=== PATIENT | male | born 1945 | race Hispanic/Latino ===

== ENCOUNTER 2023-02-27 22:14 | Emergency (ER) | payer OTHER ==
[2023-02-28 00:14] LABS: #Basophils 0.1 10x3/uL (0.0-0.2); #Eosinphils 0.1 10x3/uL (0.0-0.5); #Monocytes 0.5 10x3/uL (0.0-1.1); #Neutrophils 3.1 10x3/uL (1.5-8.4); %Basophils 0.8 % (0.0-2.0); %Lymphocytes 36.7 % (18.0-47.0); %Monocytes 8.9 % (0.0-10.0); %Neutrophils 51.4 % (40.0-75.0); Hemoglobin 12.8 g/dL (13.5-17.5); Mean Corpuscular HGB CONC 33.1 g/dL (32.0-36.0); Mean Corpuscular Hemoglobin 28.3 pg (27.0-33.0); Mean Corpuscular Volume 85.6 fl (81.2-95.1); Mean Platelet Volume 12.6 fl (7.4-10.4); Platelet Count 192 10x3/uL (150-450); RBC Distribution Width 15.8 % (11.5-14.5); Red Blood Cell (RBC) Count 4.52 10x6/uL (4.32-5.72)
[2023-02-28 00:31] LABS: ALT (SGPT) 8 U/L (8-55); AST (SGOT) 14 U/L (5-34); Albumin 4.2 g/dL (3.4-4.8); Alkaline Phosphatase 104 U/L (40-110); Anion Gap 13 mmol/L (10-20); BUN (Urea Nitrogen) 26 mg/dL (8.4-25.7); Bilirubin, Total 0.3 mg/dL (0.2-1.2); Calc. Creatinine Clearance 0 mL/min (70-130); Calcium 9.2 mg/dL (7.8-10.44); Carbon Dioxide 24 mmol/L (23-31); Chloride 105 mmol/L (98-107); Estimated GFR 48; Globulin 3.2 g/dL (2.4-3.5); Glucose 96 mg/dL (83-110); Potassium 4.2 mmol/L (3.5-5.1); Protein, Total 7.4 g/dL (5.8-8.1); Sodium 138 mmol/L (136-145)
[2023-02-28] MEDS ORDERED: Ketorolac Tromethamine 30 MG/ML VIAL ONE (01:24)
[2023-02-28] MEDS ORDERED: Acetaminophen 500 MG TAB ONE (01:24)
[2023-02-28] MEDS ORDERED: Iopamidol 370 76% 100 ML VIAL ONE (12:15)
== END 2023-02-28 07:24 | disposition short-term general hospital (02) ==
LOC: CSHERS 22:14
DX: I73.9 Peripheral vascular disease, unspecified (principal); I82.432 Acute embolism and thrombosis of left popliteal vein; I10 Essential (primary) hypertension; F17.210 Nicotine dependence, cigarettes, uncomplicated; Z79.899 Other long term (current) drug therapy
CPT/HCPCS: 75635; 80053; 85025; 85379; 93923; 96372; J1885; Q9967

== ENCOUNTER 2024-02-10 14:14 | Inpatient (IN) | payer OTHER ==
[~2024-02-10 14:14] MED LIST: Iopamidol 370 76% 100 ML VIAL ONE
[2024-02-10] MEDS ORDERED: Nitroglycerin 2% Ointment 1 INCH/1 GM Packet ONE (15:33)
[2024-02-10] MEDS ORDERED: Aspirin Chewable 81 MG TAB ONE (15:34)
[2024-02-10 16:01] LABS: #Basophils 0.1 10x3/uL (0.0-0.2); #Eosinphils 0.1 10x3/uL (0.0-0.5); #Monocytes 0.4 10x3/uL (0.0-1.1); #Neutrophils 2.9 10x3/uL (1.5-8.4); %Eosinophils 1.8 % (0.0-6.0); %Lymphocytes 32.3 % (18.0-47.0); %Monocytes 8.1 % (0.0-10.0); %Neutrophils 56.8 % (40.0-75.0); Hematocrit 37.7 % (38.8-50.0); Hemoglobin 12.5 g/dL (13.5-17.5); Mean Corpuscular HGB CONC 33.2 g/dL (32.0-36.0); Mean Corpuscular Volume 84.3 fl (81.2-95.1); Mean Platelet Volume 11.6 fl (7.4-10.4); Platelet Count 205 10x3/uL (150-450); Red Blood Cell (RBC) Count 4.47 10x6/uL (4.32-5.72); White Blood Cell (WBC) Count 5.1 10x3/uL (3.5-10.5)
[2024-02-10 16:18] LABS: ALT (SGPT) 9 U/L (8-55); AST (SGOT) 11 U/L (5-34); Alkaline Phosphatase 109 U/L (40-110); Anion Gap 13 mmol/L (10-20); BUN (Urea Nitrogen) 21 mg/dL (8.4-25.7); Bilirubin, Total 0.4 mg/dL (0.2-1.2); Calc. Creatinine Clearance 0 mL/min (70-130); Calcium 8.7 mg/dL (7.8-10.44); Carbon Dioxide 24 mmol/L (23-31); Chloride 107 mmol/L (98-107); Estimated GFR 53; Globulin 2.9 g/dL (2.4-3.5); Glucose 118 mg/dL (83-110); Potassium 3.8 mmol/L (3.5-5.1); Protein, Total 6.9 g/dL (5.8-8.1); Sodium 140 mmol/L (136-145)
[2024-02-10 16:24] LABS: Troponin I 0.019 ng/mL (< 0.028)
[2024-02-10] MEDS ORDERED: Acetaminophen 325 MG TAB PO PRN (17:28)
[2024-02-10] MEDS ORDERED: Nitroglycerin 0.4 MG TAB (25 Tab Bottle) SL PRN (17:28)
[2024-02-10 18:41] LABS: Magnesium 2.1 mg/dL (1.6-2.6)
[2024-02-10 20:03] LABS: Troponin I 0.013 ng/mL (< 0.028)
[2024-02-10] MEDS: Atorvastatin Calcium 40 MG TAB PO SCH (20:12)
[2024-02-10] MEDS: Carvedilol 6.25 MG TAB PO SCH (20:12)
[2024-02-10] MEDS: Enoxaparin 40 MG (0.4 mL) SYRINGE SC SCH (20:12)
[2024-02-10] MEDS: Famotidine 20 MG TAB PO SCH (20:13)
[2024-02-10 21:17] VITALS: BMI 28.5
[2024-02-10] MEDS: Nitroglycerin 2% Ointment 1 INCH/1 GM Packet TOP SCH (22:03)
[2024-02-10 23:08] LABS: Troponin I 0.013 ng/mL (< 0.028)
[2024-02-11 04:28] LABS: Anion Gap 12 mmol/L (10-20); BUN (Urea Nitrogen) 20 mg/dL (8.4-25.7); Calc. Creatinine Clearance 56 mL/min (70-130); Calcium 8.2 mg/dL (7.8-10.44); Cardiac Risk 4.8 (Less than 4.5); Chloride 106 mmol/L (98-107); Cholesterol 205 mg/dl (< 200 Desired); Estimated GFR 58; Glucose 111 mg/dL (83-110); HDL Cholesterol 43 mg/dL (>60 Neg Risk); LDL Cholesterol, Calculated 147 mg/dL; Potassium 3.4 mmol/L (3.5-5.1); Sodium 137 mmol/L (136-145); Triglycerides 76 mg/dL (Less than 150)
[2024-02-11 04:35] LABS: Carbon Dioxide 22 mmol/L (23-31)
[2024-02-11 04:41] LABS: #Eosinphils 0.1 10x3/uL (0.0-0.5); #Monocytes 0.4 10x3/uL (0.0-1.1); #Neutrophils 2.2 10x3/uL (1.5-8.4); %Basophils 0.9 % (0.0-2.0); %Eosinophils 2.6 % (0.0-6.0); %Lymphocytes 34.9 % (18.0-47.0); %Monocytes 9.8 % (0.0-10.0); %Neutrophils 51.6 % (40.0-75.0); Hemoglobin 11.3 g/dL (13.5-17.5); Mean Corpuscular HGB CONC 34.2 g/dL (32.0-36.0); Mean Corpuscular Hemoglobin 29.2 pg (27.0-33.0); Mean Corpuscular Volume 85.3 fl (81.2-95.1); Platelet Count 171 10x3/uL (150-450); Red Blood Cell (RBC) Count 3.87 10x6/uL (4.32-5.72); White Blood Cell (WBC) Count 4.3 10x3/uL (3.5-10.5)
[2024-02-11] MEDS: Aspirin Chewable 81 MG TAB PO SCH (09:06)
[2024-02-11] MEDS: Amlodipine 10 MG TAB PO SCH (09:06)
[2024-02-11] MEDS: Enoxaparin 40 MG (0.4 mL) SYRINGE SC SCH (09:06)
[2024-02-11] MEDS: Carvedilol 6.25 MG TAB PO SCH (09:06)
[2024-02-11] MEDS: Famotidine 20 MG TAB PO SCH (20:43)
[2024-02-12 03:36] LABS: #Eosinphils 0.2 10x3/uL (0.0-0.5); #Monocytes 0.6 10x3/uL (0.0-1.1); #Neutrophils 3.2 10x3/uL (1.5-8.4); %Basophils 0.7 % (0.0-2.0); %Eosinophils 2.9 % (0.0-6.0); %Lymphocytes 27.6 % (18.0-47.0); %Monocytes 10.6 % (0.0-10.0); Hematocrit 36.7 % (38.8-50.0); Hemoglobin 12.1 g/dL (13.5-17.5); Mean Corpuscular Hemoglobin 28.3 pg (27.0-33.0); Mean Corpuscular Volume 85.9 fl (81.2-95.1); Mean Platelet Volume 11.8 fl (7.4-10.4); Platelet Count 180 10x3/uL (150-450); RBC Distribution Width 15.1 % (11.5-14.5); Red Blood Cell (RBC) Count 4.27 10x6/uL (4.32-5.72); White Blood Cell (WBC) Count 5.6 10x3/uL (3.5-10.5)
[2024-02-12 04:27] LABS: Anion Gap 13 mmol/L (10-20); BUN (Urea Nitrogen) 18 mg/dL (8.4-25.7); Calc. Creatinine Clearance 54 mL/min (70-130); Calcium 8.8 mg/dL (7.8-10.44); Carbon Dioxide 23 mmol/L (23-31); Chloride 106 mmol/L (98-107); Estimated GFR 56; Glucose 115 mg/dL (83-110); Potassium 3.8 mmol/L (3.5-5.1); Sodium 138 mmol/L (136-145)
[2024-02-12 08:01] VITALS: BP 157/84; TEMP 97.6
[2024-02-12] MEDS: Clopidogrel Bisulfate 75 MG TAB PO SCH (09:39)
[2024-02-12] MEDS: Lisinopril 5 MG TAB PO SCH (09:39)
[2024-02-13] MEDS ORDERED: Clopidogrel Bisulfate 75 MG TAB PO SCH (09:00)
[2024-02-13] MEDS ORDERED: Lisinopril 5 MG TAB PO SCH (09:00)
== END 2024-02-12 10:15 | disposition home or self-care (01) | DRG 313 ==
LOC: CSHERS 14:14 → OBSVTOIN 17:35 → CSHTELE 17:35
PROVIDERS: ADMIT Internal Medicine; ATTEND Internal Medicine
DX: R07.89 Other chest pain (principal); Z79.82 Long term (current) use of aspirin; Z79.899 Other long term (current) drug therapy; I73.9 Peripheral vascular disease, unspecified; I12.9 Hypertensive chronic kidney disease with stage 1 through stage 4 chronic kidney disease, or unspecified chronic kidney disease; Z90.49 Acquired absence of other specified parts of digestive tract; Z87.891 Personal history of nicotine dependence; Z82.49 Family history of ischemic heart disease and other diseases of the circulatory system; N18.30 Chronic kidney disease, stage 3 unspecified; E78.5 Hyperlipidemia, unspecified
CPT/HCPCS: 36415; 71045; 71275; 74174; 80048; 80053; 80061; 83735; 83880; 84484; 85025; 93005; 93306; 94760; 94762; J1650; Q9967